=== PATIENT | female | born 1960 ===

== ENCOUNTER → 2018-11-17 | Outpatient (CLI) | payer BC ==
[~2018-11-17] MED LIST: ESC10 PO; ESTR42.5 PV; LEVO100T95 PO
[2018-11-17 11:56] LABS: LDL CHOLESTEROL 169 mg/dl
== END ==
LOC: LAB 11:13
PROVIDERS: ATTEND Obstetrics & Gynecology
DX: Z00.00 Encounter for general adult medical examination without abnormal findings (principal); E03.9 Hypothyroidism, unspecified
CPT/HCPCS: 36415; 82040; 82247; 82310; 82374; 82435; 82465; 82565; 82947; 83718; 84075; 84132; 84155; 84295; 84443; 84450; 84460; 84478; 84520; 85027

== ENCOUNTER → 2018-12-14 | Outpatient (CLI) | payer BC ==
--- NOTE | 2019-01-05 14:39 | RADIOLOGY IMAGING REPORT ---
FACILITY: [facility] PATIENT NAME: ANJELICA RESTREPO : [id number] MR: [id number] V: [id number] EXAM DATE: [id number] ORDERING PHYSICIAN: MARGARET ONTIVEROS TECHNOLOGIST: Lorraine Wheeler PROCEDURE:BILATERAL DIGITAL SCREENING MAMMOGRAM WITH CAD ASSISTED INTERPRETATION & 3D TOMOSYNTHESIS COMPARISON:None. The patient's prior outside mammograms were sent for twice & have not been received. If the mammograms do become available an addendum can be dictated at that time. INDICATIONS:SCREENING FINDINGS: The breasts are heterogeneously dense which can obscure small masses. In the inferior portion of the Left breast in the Left MLO view in the middle third there is an asymmetry for which spot compression view is recommended. DIAGNOSTIC CATEGORY 0--INCOMPLETE: NEED ADDITIONAL IMAGING EVALUATION. RECOMMENDATIONS: ADDITIONAL MAMMOGRAPHIC VIEWS REQUIRED: LEFT BREAST. IMPRESSION: BIRADS 0: Incomplete, need additional imaging evaluation. Additional views Left breast recommended as described. Dictated by: Hafsa Reno M.D. on 01/05/2019 at 11:13 Transcribed by: YULIET on 01/05/2019 at 11:42 Approved by: Hafsa Reno M.D. on 01/05/2019 at 14:38 [facility]
== END ==
LOC: MAMO 00:59
PROVIDERS: ATTEND Obstetrics & Gynecology
DX: R92.2 Inconclusive mammogram (principal)
CPT/HCPCS: 77063; 77067